=== PATIENT | male | born 1945 | race Caucasian/White ===

== ENCOUNTER → 2023-06-26 07:07 | Outpatient (REF) | payer MEDICARE, BC, SELFPAY ==
[2023-06-26 09:34] LABS: ALT (SGPT) 31 U/L (0-50); Blood Urea Nitrogen 20 mg/dl (9-20); Calcium 9.9 mg/dl (8.4-10.2); Carbon Dioxide 29 mmol/L (22-30); Chloride 100 mmol/L (98-107); Glucose 136 mg/dl (70-99); HDL Cholesterol 69 mg/dl; LDL Cholesterol, Calculated 93 mg/dl; Potassium 4.3 mmol/L (3.5-5.1); Sodium 138 mmol/L (135-145); Total Cholesterol 189 mg/dl (50-199); Triglyceride 139 mg/dl (10-149); Very Low Density Lipoprotein 27 mg/dl (0-30); eGFR > 60.00
[2023-06-26 09:55] LABS: Vitamin D, 25-OH*** 48.1 ng/mL (30-80)
[2023-06-26 10:07] LABS: Microalbumin, Random Urine 1.8 mg/dl (0.6-1.7); Microalbumin/creatinine Ratio 16.7 mg/g
[2023-06-26 11:41] LABS: Glycohemoglobin (HgbA1c) 8.3 % (4.0-5.6)
== END ==
LOC: REG 07:07
PROVIDERS: ATTENDING PHYSICIAN Internal Medicine; FAMILY PHYSICIAN Family Medicine
DX: E11.65 Type 2 diabetes mellitus with hyperglycemia (principal); Z79.4 Long term (current) use of insulin; E78.2 Mixed hyperlipidemia; E55.9 Vitamin D deficiency, unspecified
CPT/HCPCS: 36415; 80048; 80061; 82043; 82306; 82570; 83036; 84460

== ENCOUNTER → 2023-11-06 07:06 | Outpatient (REF) | payer MEDICARE, BC, SELFPAY ==
[2023-11-06 09:30] LABS: ALT (SGPT) 27 U/L (0-50); Blood Urea Nitrogen 22 mg/dl (9-20); Calcium 9.8 mg/dl (8.4-10.2); Carbon Dioxide 26 mmol/L (22-30); Chloride 103 mmol/L (98-107); Glucose 112 mg/dl (70-99); Potassium 4.8 mmol/L (3.5-5.1); Sodium 137 mmol/L (135-145); eGFR > 60.00
[2023-11-06 10:17] LABS: Glycohemoglobin (HgbA1c) 7.7 % (4.0-5.6)
== END ==
LOC: REG 07:06
PROVIDERS: ATTENDING PHYSICIAN Internal Medicine; FAMILY PHYSICIAN Family Medicine
DX: E11.65 Type 2 diabetes mellitus with hyperglycemia (principal); Z79.4 Long term (current) use of insulin
CPT/HCPCS: 36415; 80048; 83036; 84460

== ENCOUNTER → 2024-02-17 06:29 | Outpatient (REF) | payer MEDICARE, BC, SELFPAY ==
[2024-02-17 10:24] LABS: Glycohemoglobin (HgbA1c) 8.4 % (4.0-5.6)
[2024-02-17 11:10] LABS: Microalbumin/creatinine Ratio 8.6 mg/g
[2024-02-17 11:37] LABS: ALT (SGPT) 25 U/L (0-50); Blood Urea Nitrogen 21 mg/dl (9-20); Calcium 9.5 mg/dl (8.4-10.2); Carbon Dioxide 29 mmol/L (22-30); Chloride 101 mmol/L (98-107); Glucose 117 mg/dl (70-99); HDL Cholesterol 62 mg/dl; LDL Cholesterol, Calculated 82 mg/dl; Potassium 5.2 mmol/L (3.5-5.1); Sodium 144 mmol/L (135-145); Total Cholesterol 160 mg/dl (50-199); Triglyceride 80 mg/dl (10-149); Very Low Density Lipoprotein 16 mg/dl (0-30); eGFR > 60.00
[2024-02-17 11:47] LABS: Vitamin D, 25-OH*** 48.8 ng/mL (30-80)
== END ==
LOC: REG 06:29
PROVIDERS: ATTENDING PHYSICIAN Internal Medicine; FAMILY PHYSICIAN Family Medicine; OTHER PHYSICIAN Ophthalmology; REFERRING PHYSICIAN Ophthalmology
DX: E11.65 Type 2 diabetes mellitus with hyperglycemia (principal); Z79.4 Long term (current) use of insulin; E78.2 Mixed hyperlipidemia; E55.9 Vitamin D deficiency, unspecified
CPT/HCPCS: 36415; 80048; 80061; 82043; 82306; 82570; 83036; 84460

== ENCOUNTER → 2024-07-03 06:37 | Outpatient (REF) | payer MEDICARE, BC, SELFPAY ==
[2024-07-03 08:05] LABS: ALT (SGPT) 23 U/L (0-50); Blood Urea Nitrogen 24 mg/dl (9-20); Calcium 9.9 mg/dl (8.4-10.2); Carbon Dioxide 30 mmol/L (22-30); Chloride 99 mmol/L (98-107); Glucose 126 mg/dl (70-99); Potassium 4.8 mmol/L (3.5-5.1); Sodium 138 mmol/L (135-145); eGFR > 60.00
[2024-07-03 09:48] LABS: Glycohemoglobin (HgbA1c) 8.2 % (4.0-5.6)
== END ==
LOC: REG 06:37
PROVIDERS: ATTENDING PHYSICIAN Internal Medicine; FAMILY PHYSICIAN Family Medicine
DX: E11.65 Type 2 diabetes mellitus with hyperglycemia (principal); Z79.4 Long term (current) use of insulin
CPT/HCPCS: 36415; 80048; 83036; 84460

== ENCOUNTER → 2025-01-10 06:39 | Outpatient (REF) | payer MEDICARE, BC, SELFPAY ==
[2025-01-10 07:47] LABS: Hematocrit 46.5 % (39.0-52.0); Hemoglobin 15.5 g/dL (13.0-18.0); Mean Corp Hgb Conc. 33.3 g/dL (33.0-37.0); Mean Corpuscular Volume 91.7 fL (80.0-94.0); Nucleated Red Blood Cells % 0 % (-); Platelet Count 220 10^3/uL (130-400); Red Cell Dist. Width 12.8 % (11.5-14.5)
[2025-01-10 08:15] LABS: ALT (SGPT) 25 U/L (0-50); Blood Urea Nitrogen 23 mg/dl (9-20); Calcium 9.8 mg/dl (8.4-10.2); Carbon Dioxide 29 mmol/L (22-30); Chloride 102 mmol/L (98-107); Glucose 111 mg/dl (70-99); HDL Cholesterol 61 mg/dl; LDL Cholesterol, Calculated 72 mg/dl; Potassium 5.2 mmol/L (3.5-5.1); Sodium 139 mmol/L (135-145); Very Low Density Lipoprotein 19 mg/dl (0-30); eGFR > 60.00
[2025-01-10 08:16] LABS: Glycohemoglobin (HgbA1c) 8.4 % (4.0-5.6)
[2025-01-10 08:25] LABS: Microalbumin, Random Urine 1.1 mg/dl (0.6-1.7)
[2025-01-10 08:34] LABS: Microalb - Urine Creatinine 109.800 mg/dl
[2025-01-10 08:48] LABS: PSA, Total - Screen 12.70 ng/ml (0.0-4.0)
== END ==
LOC: REG 06:39
PROVIDERS: ATTENDING PHYSICIAN Family Medicine; OTHER PHYSICIAN Internal Medicine; OTHER PHYSICIAN Internal Medicine Endocrinology, Diabetes & Metabolism
DX: E11.65 Type 2 diabetes mellitus with hyperglycemia (principal); Z79.4 Long term (current) use of insulin; E78.2 Mixed hyperlipidemia; E11.69 Type 2 diabetes mellitus with other specified complication; Z12.5 Encounter for screening for malignant neoplasm of prostate
CPT/HCPCS: 36415; 80048; 80061; 82043; 82570; 83036; 84460; 85025; G0103

== ENCOUNTER → 2025-01-17 13:10 | Outpatient (REF) | payer MEDICARE, BC, SELFPAY | LOC: MRI 3T 13:10 | PROVIDERS: ATTENDING PHYSICIAN Specialist; FAMILY PHYSICIAN Family Medicine | DX: R97.20 Elevated prostate specific antigen [PSA] (principal) | CPT/HCPCS: 72197; A9575 ==

== ENCOUNTER → 2025-04-16 06:19 | Outpatient (REF) | payer MEDICARE, BC, SELFPAY ==
[2025-04-16 08:51] LABS: Microalbumin, Random Urine 1.2 mg/dl (0.6-1.7)
[2025-04-16 09:15] LABS: ALT (SGPT) 46 U/L (0-50); AST (SGOT) 53 U/L (17-59); Albumin 4.5 g/dl (3.5-5.0); Alkaline Phosphatase 89 U/L (38-126); Blood Urea Nitrogen 26 mg/dl (9-20); Calcium 9.9 mg/dl (8.4-10.2); Carbon Dioxide 29 mmol/L (22-30); Chloride 102 mmol/L (98-107); Glucose 144 mg/dl (70-99); HDL Cholesterol 58 mg/dl; LDL Cholesterol, Calculated 77 mg/dl; Potassium 5.6 mmol/L (3.5-5.1); Sodium 137 mmol/L (135-145); Total Protein 7.5 g/dl (6.3-8.2); Very Low Density Lipoprotein 17 mg/dl (0-30); eGFR > 60.00
[2025-04-16 10:28] LABS: Glycohemoglobin (HgbA1c) 8.4 % (4.0-5.9)
== END ==
LOC: REG 06:19
PROVIDERS: ATTENDING PHYSICIAN Nurse Practitioner Family; FAMILY PHYSICIAN Family Medicine
DX: E11.65 Type 2 diabetes mellitus with hyperglycemia (principal)
CPT/HCPCS: 36415; 80053; 80061; 82043; 82570; 83036